=== PATIENT | male | born 1945 | race Caucasian/White ===

== ENCOUNTER → 2018-01-23 09:08 | Outpatient (CLI) | payer OTHER, SELFPAY ==
--- NOTE | 2018-01-23 | DI.CT.S_ITS ---
PROCEDURE: CT ABDOMEN PELVIS W CON INDICATIONS: RIGHT LOWER QUADRANT ABDOMINAL PAIN TECHNIQUE: After the administration of oral and intravenous contrast, 5 mm thick sections acquired from the diaphragms to the symphysis. 5 mm thick coronal and sagittal reformats were performed. For radiation dose reduction, the following was used: automated exposure control, adjustment of mA and/or kV according to patient size. COMPARISON: [facility], CT, ABDOMEN/PELVIS WITH CONTRAST, 01/15/2011, 14:49. FINDINGS: Image quality: Excellent. ABDOMEN: Lung bases: Lung bases are clear. Heart size is normal. Solid organs: Liver is normal in size with homogeneous decreased attenuation. Gallbladder contains small dependent calcifications, normal wall thickness. Biliary system is non-dilated. Pancreas enhances normally. Spleen is normal in size and enhancement. Small splenule. No adrenal nodules. Kidneys are normal in size and enhancement, without hydronephrosis. Mild bilateral perinephric fat stranding appears unchanged. Peritoneum and bowel: Stomach, small bowel, and colon loops are normal in caliber and wall thickness. The appendix is filled with contrast and normal in appearance. Colonic diverticulosis without diverticulitis. No free fluid or air. Nodes and vessels: No retroperitoneal or mesenteric adenopathy. Aorta and inferior vena cava are normal in caliber. Miscellaneous: The probable inflammatory cyst overlying the left rectus muscle on last exam is no longer present. Small fat filled umbilical hernia. PELVIS: Genitourinary: Bladder wall thickness is normal. Prostate and seminal vesicles appear normal. Miscellaneous: No inguinal hernias or adenopathy. Bones: No suspicious bony lesions. No vertebral body compression fractures. Total right hip prosthesis again noted. IMPRESSION: 1. No acute findings in the abdomen or pelvis to explain right lower quadrant pain. Normal appendix is visualized. 2. Hepatic steatosis. 3. Probable cholelithiasis without evidence of cholecystitis. Suggest abdomen ultrasound for confirmation. 4. Colonic diverticulosis without diverticulitis. 5. Status post total right hip arthroplasty. Dictated by: Ramakrishna Nova M.D. on 01/23/2018 at 10:29 Approved by: Ramakrishna Nova M.D. on 01/23/2018 at 10:38
== END ==
PROVIDERS: PCP Family Medicine; Visit Provider Family Medicine
DX: R10.31 Right lower quadrant pain (principal); K76.0 Fatty (change of) liver, not elsewhere classified; K57.90 Diverticulosis of intestine, part unspecified, without perforation or abscess without bleeding; Z96.641 Presence of right artificial hip joint
CPT/HCPCS: 74177; Q9967

== ENCOUNTER 2018-03-31 08:16 | Day surgery (SDC) | payer OTHER, SELFPAY ==
--- NOTE | 2018-03-31 | PATH_ITS ---
[facility] Accession Number: [id number] . 01 Material submitted: . PART A: POLYP ADJACENT TO CECUM PART B: TRANSVERSE COLON AT 60, POLYP PART C: SIGMOID COLON POLYP AT 25 . 02 Diagnosis: A. Biopsy Polyp Adjacent to Cecum: Tubular adenoma involving multiple biopsy fragments. . B. Biopsy Transverse Colon Polyp at 60 cm: Tubular adenoma involving single biopsy fragment. . C. Biopsy Sigmoid Colon Polyp at 25 cm: Polypoid-shaped fragment of normal appearing colon mucosa consistent with mucosal polypoid redundancy. (negative for evidence of neoplasm and/or hyperplasia on multiple sections). MRV/04/01/2018 . 02 Electronically signed: . Frank Cisneros MD, Pathologist NPI- [id number] . 01 Gross description: . Received three formalin-filled containers, each labeled with the patient's name: . A. In a container labeled polyp adjacent to cecum, the specimen consists of multiple less than 0.1 cm to 0.3 cm portions of tissue and/or debris, which are filtered, wrapped, and entirely submitted in cassette A. B. In a container labeled transverse colon polyp at 60, the specimen consists of two 0.2-0.3 cm portions of tissue, entirely submitted in cassette B. C. In a container labeled sigmoid colon polyp at 25, the specimen consists of a 0.3 cm portion of tissue, entirely submitted in cassette C. ([id number]) /FRR . 02 Pathologist provided ICD-10: D12.0 . 02 CPT . 851462, 655245, 147130 Specimen Comment: A duplicate report has been generated due to demographic updates. Performed at: [address] [facility] [place] [id number] MD Tristian Kwon MD Phone: [phone] Performed at: 02 [facility] [id number] [place] [id number] MD Michael Palumbo MD Phone: [phone]
[2018-03-31 09:35] VITALS: BP 130/81; PULSE 89; RESP 15; TEMP 36.6; O2SAT 98; BMI 31.1
--- NOTE | 2018-03-31 09:53 | PM.PREOP ---
Pre-operative Note Interval Note Pre-op Check: Yes History & Physical Reviewed by Physician and Yes Exam Performed Changes: No H&P completed within 30 days and has changed as indicated here:: Patient seen and examined. History and physical examination documented within the last 30 days is on the chart and has not changed. INR today is 1.2. Lovenox was stopped yesterday. Will proceed with colonoscopy today as planned. ASA Class (for procedural sedation): II
[2018-03-31] MEDS: SODIUM CHLORIDE 0.9% 1,000 ML 200 ML IV (09:58)
[2018-03-31] MEDS: MIDAZOLAM 5 MG/5 ML VIAL IV (10:14)
[2018-03-31] MEDS: fentaNYL 250 MCG/5 ML INJ IV (10:14)
--- NOTE | 2018-03-31 10:29 | PM.OP.ENDO ---
Operative Date/Time/Diagnoses Date of procedure: 03/31/18 Time of procedure: 10:29 Pre-op diagnosis: Colorectal screening Post-op diagnosis: other (Diverticulosis and colon polyps) Procedure & Clinicians Study performed: 1. Sedation per surgeon 2. Colonoscopy with cold forceps polypectomies Same procedure as scheduled: Yes Indications: 73-year-old male requiring colorectal screening. Colonoscopy is recommended. His anticoagulation therapy was adjusted accordingly. Surgeon: Pete Lopez Procedure Notes SCOAP/Timeout: Yes Procedure in detail: After obtaining informed consent, the patient was brought to the GI suite and placed in the left lateral decubitus position on the examination table. After placement of appropriate monitors, the patient was given incremental doses of Versed and Fentanyl until an appropriate level of sedation was achieved. A time out was held per SCOAP protocol. A digital rectal examination was performed and did not reveal any masses or obstructing lesions. The colonoscope was gently passed into the patient's anus and the entire colon navigated to the level of the cecum with minimal difficulty. Once in the cecum, the scope was withdrawn being sure to go before and beyond all mucosal folds and prominences and get an excellent examination. The findings are noted above. At the level of the rectal vault, the scope was retroflexed and the internal anal canal was examined. The scope was straightened and air aspirated from the colon. The instrument was removed from the patient's body and the procedure was concluded. The patient was allowed to awaken from sedation without difficulty and taken to the post-anesthesia care unit in good condition. Scope withdrawal time: 14:22 min Sedation minutes: 22 Findings: diverticulosis and polyp Specimen(s): other (1. Polyp adjacent to cecum 2. Transverse colon polyp at 60 cm 3. Sigmoid colon polyp at 25 cm) Complications: none Recommendations: Colonscopy in 5 years, High fiber diet and Will call with biopsy results Plan for aftercare: 1. Discharge to home Follow up: as needed Disposition: PACU
[2018-03-31 10:35] VITALS: BP 104/60; PULSE 82; RESP 16; TEMP 36.7; O2SAT 97
== END 2018-03-31 10:58 | disposition home or self-care (01) ==
PROVIDERS: PCP Family Medicine; Visit Provider Surgery
PROC: 0DJD8ZZ Inspection of Lower Intestinal Tract, Via Natural or Artificial Opening Endoscopic (ICD-10-PCS; CPT 45378; principal; 2018-03-31 10:45)
DX: Z12.11 Encounter for screening for malignant neoplasm of colon (principal); K57.30 Diverticulosis of large intestine without perforation or abscess without bleeding; Z80.0 Family history of malignant neoplasm of digestive organs; I10 Essential (primary) hypertension; E78.5 Hyperlipidemia, unspecified; F17.210 Nicotine dependence, cigarettes, uncomplicated; D12.0 Benign neoplasm of cecum
CPT/HCPCS: 45380; 99152; J2250; J3010